=== PATIENT | female | born 1965 | race Caucasian/White ===

== ENCOUNTER 2016-12-14 11:37 | Emergency (ER) | payer BC ==
[~2016-12-14] VITALS: Ht 167.6 cm; Wt 77.1 kg
[~2016-12-14 11:37] MED LIST: CELEXA 20 MG TA20 M1; GLUCOPHAGE1000 MG; IBUPROFEN 600600 M1 PO; IBUPROFEN 800800 MG PO; LAMICTAL XR50 MG; NORCO 5-325 TA1 EACH PO; TIROSINT75 MCG
[2016-12-14] MEDS ORDERED: L-METHYLFOLATE15 M1 PO (11:55)
[2016-12-14] MEDS ORDERED: CYMBALTA20 MG PO (11:55)
[2016-12-14] MEDS ORDERED: OMEPRAZOLE5 GM (11:55)
[2016-12-14] MEDS ORDERED: HYDROCODONE-AP1 EAC6 PO (13:07)
[2016-12-14 13:59] VITALS: BP 113/69
== END 2016-12-14 14:01 | disposition home or self-care (01) ==
LOC: ER 11:37
DX: S46.912A Strain of unspecified muscle, fascia and tendon at shoulder and upper arm level, left arm, initial encounter (principal); S20.212A Contusion of left front wall of thorax, initial encounter; Z88.8 Allergy status to other drugs, medicaments and biological substances; W01.0XXA Fall on same level from slipping, tripping and stumbling without subsequent striking against object, initial encounter; Y93.89 Activity, other specified; Y92.89 Other specified places as the place of occurrence of the external cause; Y99.8 Other external cause status

== ENCOUNTER 2018-03-07 00:19 | Inpatient (IN) | payer OTHER ==
[~2018-03-07] VITALS: Ht 170.2 cm; Wt 67.6 kg
[2018-03-07] VITALS (9 sets, daily range): BP systolic 84–129; BP diastolic 50–80
[~2018-03-07 00:19] MED LIST changes: +CYMBALTA20 MG PO; +HYDROCODONE-AP1 EAC6 PO; +L-METHYLFOLATE15 M1 PO; +OMEPRAZOLE5 GM
[2018-03-07 01:20] LABS: ABSOLUTE NEUTROPHILS 4.7 thou/uL (1.4-8.2); BASOPHILS 0.5 % (0.0-2.0); EOSINOPHILS 2.1 % (0.0-3.0); HEMATOCRIT 37.5 % (37.0-47.0); HEMOGLOBIN 12.9 gm/dL (12.0-15.0); LYMPHOCYTES 22.7 % (24.0-44.0); MCH 31.2 pg (26.0-34.0); MCHC 34.3 g/dL (28.0-37.0); MCV 90.9 fL (80.0-100.0); MONOCYTES 5.2 % (1.0-8.0); PLATELET COUNT 292 thou/uL (150-400); POLYS 69.5 % (36.0-66.0); RBC 4.12 mil/uL (4.20-5.00); RDW 12.8 % (10.5-14.5); WBC 6.8 thou/uL (4.0-11.0)
[2018-03-07] MEDS ORDERED: ABILIFY 5 MG TAB5 MG PO (01:22)
[2018-03-07] MEDS ORDERED: NEURONTIN 300300 M1 PO (01:22)
[2018-03-07] MEDS ORDERED: VENLAFAXINE HCL75 M1 PO (01:23)
[2018-03-07 01:25] LABS: CALCIUM 9.9 mg/dL (8.5-10.1); CREATININE 0.7 mg/dL (0.6-1.0); POTASSIUM 4.2 mmol/L (3.5-5.1)
[2018-03-07 01:26] LABS: APTT 26.6 Seconds (24.5-32.8); PROTIME 10.3 Seconds (9.3-11.4)
[2018-03-07 01:31] LABS: ALBUMIN 4.1 g/dL (3.4-5.0); TOTAL BILIRUBIN 0.3 mg/dL (<0.1-1.0); TOTAL PROTEIN 8.3 g/dL (6.4-8.2)
[2018-03-08 00:39] VITALS: BP 109/66
[2018-03-08 04:41] VITALS: BP 136/68
[2018-03-08 04:50] LABS: HEMATOCRIT 31.8 % (37.0-47.0); MCH 31.3 pg (26.0-34.0); MCHC 34.2 g/dL (28.0-37.0); MCV 91.5 fL (80.0-100.0); RBC 3.47 mil/uL (4.20-5.00); WBC 3.4 thou/uL (4.0-11.0)
[2018-03-08 05:01] LABS: HEMOGLOBIN 10.9 gm/dL (12.0-15.0)
[2018-03-08 05:06] LABS: CALCIUM 8.5 mg/dL (8.5-10.1); CREATININE 0.6 mg/dL (0.6-1.0); POTASSIUM 3.9 mmol/L (3.5-5.1)
[2018-03-08 08:30] VITALS: BP 131/78
[2018-03-08] MEDS ORDERED: PROTONIX40 M1 PO (10:22)
[2018-03-08 10:52] VITALS: BP 131/78
[2018-03-08 11:20] VITALS: BP 131/78
== END 2018-03-08 11:20 | disposition home or self-care (01) | DRG 369 ==
LOC: ER 00:19 → 3W 01:38 → EROBS 01:38 → 3W 02:40
PROVIDERS: Emergency Medicine; Nurse Practitioner Family
PROC: 0DB68ZX Excision of Stomach, Via Natural or Artificial Opening Endoscopic, Diagnostic (ICD-10-PCS; principal; 2018-03-07)
DX: K22.6 Gastro-esophageal laceration-hemorrhage syndrome (principal); D62 Acute posthemorrhagic anemia; F32.9 Major depressive disorder, single episode, unspecified; K92.2 Gastrointestinal hemorrhage, unspecified; E03.9 Hypothyroidism, unspecified; Z88.8 Allergy status to other drugs, medicaments and biological substances; Z98.84 Bariatric surgery status; Z79.899 Other long term (current) drug therapy
CPT/HCPCS: 10879